=== PATIENT | female | born 1995 | race Caucasian/White ===

== ENCOUNTER → 2020-08-08 | Outpatient (CLI) | payer OTHER ==
--- NOTE | 2020-08-10 06:52 | REP ---
INDICATION: DATING COMPARISON: None. TECHNIQUE: Transabdominal 1st trimester obstetrical ultrasound with color Doppler evaluation. FINDINGS: Single live early intrauterine is appreciated. Gestational sac with yolk sac and pole identified. [place]-rump length of 7.3 cm corresponds to 13 weeks 3 days gestational age with estimated date of delivery 02/10/2021. heart rate equals 152 beats per minute. No gross abnormalities are identified. IMPRESSION: Single live early intrauterine at 13 weeks 3 days gestational age. Complete anatomical assessment should be performed and 19-20 weeks. <Electronically signed by Edenilson Jo > 08/10/20 [id number]
== END ==
LOC: M WHC 14:03
PROVIDERS: ATTEND Advanced Practice Midwife
DX: Z36.89 Encounter for other specified antenatal screening (principal); Z3A.13 13 weeks gestation of pregnancy

== ENCOUNTER → 2020-08-31 | Outpatient (REF) | payer OTHER ==
[2020-08-31 18:01] LABS: HEMOGLOBIN 13.4 g/dl (12.0-15.5); MEAN CORPUSCULAR HEMOGLOBIN 30.9 pg (27.0-33.0); MEAN CORPUSCULAR HGB CONC 32.7 g/dl (32.0-36.5); MEAN CORPUSCULAR VOLUME 94.5 fl (80.0-96.0); PLATELET COUNT, AUTOMATED 339 10^3/uL (150-450); RED BLOOD COUNT 4.34 10^6/uL (4.00-5.40); WHITE BLOOD COUNT 11.3 10^3/uL (4.0-10.0)
[2020-08-31 19:16] LABS: HEPATITIS C VIRUS ABY INDEX 0.1 INDEX (<0.8); HIV 1&2 SCREEN CENTAUR NEGATIVE (NEGATIVE)
== END ==
LOC: M PLALAB 15:59
PROVIDERS: ATTEND Advanced Practice Midwife
DX: Z34.90 Encounter for supervision of normal pregnancy, unspecified, unspecified trimester (principal); Z3A.00 Weeks of gestation of pregnancy not specified

== ENCOUNTER → 2020-09-14 | Outpatient (CLI) | payer OTHER ==
--- NOTE | 2020-09-15 02:58 | REP ---
INDICATION: ANATOMY COMPARISON: None. TECHNIQUE: Transabdominal obstetrical ultrasound with color Doppler evaluation. FINDINGS: Examination demonstrates a single live intrauterine in transverse presentation. motion is identified by technologist. Placenta is noted anterior and grade 0 without evidence for placenta previa or abruption. Amniotic fluid volume is normal. Cervix measures 3.6 cm in length and appears closed.. Gestational age by LMP 18 weeks 5 days with NAIMA 02/10/2021. Gestational age by current measurements 18 weeks 2 days with NAIMA 02/13/2021. FHR equals 143 beats per minute. BPD: 4.1 cm 18 weeks 3 days HC: 15.4 cm 18 weeks 3 days AC: 12.9 cm 18 weeks 3 days FL: 2.6 cm 18 weeks 0 days HL: 2.6 cm 18 weeks 0 days HC/AC: 1.20 Estimated weight 231 grams (22ndpercentile). Anatomical assessment demonstrates normal structures including cranium, choroid plexus, cavum, cerebellum/posterior fossa, facial features, lungs, diaphragm, stomach, cord insertion/three-vessel cord, kidneys/bladder, spine, and extremities. IMPRESSION: Single live intrauterine in transverse lie demonstrating appropriate interval growth. Limited evaluation of the heart/ventricular outflow tracts due to positioning. Remainder of the anatomical assessment is complete and normal. <Electronically signed by Edenilson Jo > 09/15/20 [id number]
== END ==
LOC: M WHC 10:07
PROVIDERS: ATTEND Advanced Practice Midwife
DX: O32.2XX0 Maternal care for transverse and oblique lie, not applicable or unspecified (principal); Z36.89 Encounter for other specified antenatal screening; Z3A.18 18 weeks gestation of pregnancy

== ENCOUNTER → 2020-10-04 | Outpatient (REF) | payer OTHER | LOC: M SFHCWAGY 12:39 | PROVIDERS: ATTEND Advanced Practice Midwife | DX: Z34.82 Encounter for supervision of other normal pregnancy, second trimester (principal) ==

== ENCOUNTER → 2020-10-12 | Outpatient (CLI) | payer OTHER ==
--- NOTE | 2020-10-12 12:01 | REP ---
INDICATION: F/U ANATOMY COMPARISON: 09/14/2020 TECHNIQUE: Transabdominal obstetrical ultrasound with color Doppler evaluation. FINDINGS: Examination demonstrates a single live intrauterine in variable presentation. motion is identified by technologist. Placenta is noted anterior and grade 0 without evidence for placenta previa or abruption. Amniotic fluid volume is normal. Cervix measures 3.4 cm in length and appears closed.. Gestational age by LMP twenty-two weeks 5 days with NAIMA 02/10/2021. Gestational age by current measurements 22 weeks 3 days with NAIMA 02/12/2021. FHR equals 139 beats per minute. Estimated weight 506 grams (32ndpercentile). Anatomical assessment demonstrates normal appearance to the four-chamber heart and cardiac ventricular outflow tracts. IMPRESSION: In conjunction with prior examination anatomical assessment is complete and normal. <Electronically signed by Edenilson Jo > 10/12/20 [id number]
== END ==
LOC: M WHC 09:48
PROVIDERS: ATTEND Advanced Practice Midwife
DX: Z36.9 Encounter for antenatal screening, unspecified (principal); Z3A.22 22 weeks gestation of pregnancy

== ENCOUNTER → 2020-11-18 | Outpatient (REF) | payer OTHER ==
[2020-11-18 16:57] LABS: HEMATOCRIT 33.1 % (36.0-47.0); HEMOGLOBIN 11.1 g/dl (12.0-15.5); MEAN CORPUSCULAR HEMOGLOBIN 32.4 pg (27.0-33.0); MEAN CORPUSCULAR HGB CONC 33.5 g/dl (32.0-36.5); MEAN CORPUSCULAR VOLUME 96.5 fl (80.0-96.0); PLATELET COUNT, AUTOMATED 291 10^3/uL (150-450); RED BLOOD COUNT 3.43 10^6/uL (4.00-5.40); WHITE BLOOD COUNT 15.3 10^3/uL (4.0-10.0)
== END ==
LOC: M PLALAB 14:24
PROVIDERS: ATTEND Advanced Practice Midwife
DX: Z34.82 Encounter for supervision of other normal pregnancy, second trimester (principal)

== ENCOUNTER → 2020-11-28 | Outpatient (CLI) | payer OTHER | LOC: M LAB 08:25 | PROVIDERS: ATTEND Advanced Practice Midwife | DX: O99.810 Abnormal glucose complicating pregnancy (principal); Z3A.00 Weeks of gestation of pregnancy not specified ==

== ENCOUNTER → 2020-12-09 | Outpatient (REF) | payer OTHER | LOC: M PLALAB 15:33 | PROVIDERS: ATTEND Advanced Practice Midwife | DX: Z34.83 Encounter for supervision of other normal pregnancy, third trimester (principal) | CPT/HCPCS: 36415; 86850; 86901; J2790 ==

== ENCOUNTER → 2021-01-12 | Outpatient (REF) | payer OTHER | LOC: M SFHCWAGY 09:47 | PROVIDERS: ATTEND Advanced Practice Midwife | DX: Z36.89 Encounter for other specified antenatal screening (principal); Z3A.35 35 weeks gestation of pregnancy ==

== ENCOUNTER 2021-02-17 12:42 | Inpatient (IN) | payer OTHER ==
[2021-02-17] VITALS (8 sets, daily range): BP systolic 121–138; BP diastolic 62–85
[~2021-02-17] VITALS: Ht 149.9 cm; Wt 79.3 kg
[2021-02-17] MEDS ORDERED: PRENTAB9 PO (13:08)
[2021-02-17] MEDS ORDERED: TUMS500C PO (13:08)
[2021-02-17] MEDS ORDERED: LACTATED RINGER'S 1000 ML IV STA (14:08)
[2021-02-17] MEDS ORDERED: OXYTOCIN DRIP 30 UNITS in IV 1 EA IV PRN (14:10)
[2021-02-17] MEDS ORDERED: METHYLERGONOVINE MALEATE 0.2 MG/ML VIAL (J2210) IM PRN (14:10)
[2021-02-17] MEDS ORDERED: LIDOCAINE 1% MDV 20ML VIAL INFIL PRN (14:10)
--- NOTE | 2021-02-17 14:22 | HPEPDOC ---
Obstetrical History & Physical General Date of Admission February 17, 2021 at 12:42 History of Present Illness Chief Complaint: Induction of labor Age: 26 : 3 Term: 1 Pre-term: 0 Abortions: 1 Livin Care Care: Good Care Dating Final EDC by: 1st trimester (US) EGA at Admission: 41 Antepartum Course Pre- weight (lbs.): 143 Admission Weight (lbs.): 173 Past Medical History Past Obstetrical History : Past Obstetrical History: Primgravida (2010) Type of Delivery: Spontaneous Vaginal Del. Sex of : Male (7#14) Complications: No MANAGER TRANSMISSION History: Theraputic Past Medical History Surgical History: Denies/None Family History Significant Family History: No pertinent family hx Social History Family situation: Spouse/partner home Psychosocial History: No pertinent psych hx * Smoker: current smoker Alcohol: Denies Drugs: denies Abuse Violence Screening Have you been hit/kicked/slapp: No Have you been sexually assault: No Imunizations Tdap status: needs Allergies Coded Allergies: No Known Allergies (Unverified , 02/17/21) Medications Scheduled No.137/Iron/Folic Acd ( Vitamin Tablet) 1 Each Tablet, 1 TAB PO DAILY Scheduled PRN Calcium Carbonate (Tums) 200 Mg Tab.chew, 2 TAB PO QID PRN for HEARTBURN Physical Examination Physical Examination GENERAL: Alert and oriented times three. BREAST: . ABDOMEN: Gravid and non-tender to touch. FETUS: Is vertex (VTX) by sterile vaginal examination (SVE), fetus is vertex (VTX) by Dileep. EFW 7.5-8# HEART RATE: Regular rate and rhythm. LUNGS: Clear to auscultation (CTA). EXTREMITIES: No edema. No clonus. Deep tendon reflexes (DTRs) + 2. Vital Signs/I&O Vital Signs Date Time Temp Pulse Resp B/P (MAP) Pulse Ox O2 Delivery O2 Flow Rate FiO2 02/17/21 13:03 98.5 97 99 137/79 (98) Laboratory Data 24H LABS Laboratory Tests 2 02/17/21 12:51: Serology Scanned Report Hepatitis B Testing Pertinent Laboratoy Data Blood Type: B- RBC Antibody Screen: Negative HIV: Negative Hepatitis B: Negative Hepatitis C: Negative Rapid Plasma Reagin: Nonreactive Rubella: Immune Group B Streptococcus: Negative Glucose Tolerance Test: 163 (86/194/139/101) Anatomy Ultrasound Ultrasound Date: Sep 14, 2020 Placenta Location: Anterior Normal Anatomy: Yes Placenta Previa: No Estimated Weight (grams): 231 (22%) Other Ultrasounds 08/08/2020 dating 13w3d, NAIMA 02/10/21 10/12/2020 f/u anatomy EFW 506gm, 32%, normal f/u anatomy Steroid Therapy Steroid Therapy: No Vaginal Examination Dilation: Fingertip Effacement: 50% Station: -3 Cervical Consistency: Medium Cervical Position: Posterior Presentation: Cephalic presentation Assessment Heart Rate (FHR): 150 Variability: Moderate Accelerations: Positive Decelerations: None Tocometer Contractions: Yes Frequency: irregular Strength: palpated as mild Assessment/Plan Assessment Josie is a 26-year-old (G)3 para (P)1-0-1-1 at 41+0 weeks by 13-week ultrasound. Presents to Labor and Delivery (L&D) for postterm induction of labor. Denies LOF, bleeding or regular UC. Plan Admit and orient per consult Dr Marrufo Silver Steward and consent. Diet: regular. Group B Streptococcus (GBS) negative. Labs and intravenous (IV) per unit protocol. Counseled on misopostol, Pitocin and induction of labor (IOL). Lactated Ringers (LR): Bolus 500 mL, then saline lock. Plans epidural Anticipate normal spontaneous delivery (). C-S as appropriate. Idalia Sharp CNM February 17, 2021 14:22
[2021-02-17] MEDS: miSOPROStol 50MCG 1/2 TABLET PO SCH ×3 (14:23→22:30)
[2021-02-17 14:42] LABS: HEMATOCRIT 34.9 % (36.0-47.0); HEMOGLOBIN 11.7 g/dl (12.0-15.5); MEAN CORPUSCULAR HGB CONC 33.5 g/dl (32.0-36.5); MEAN CORPUSCULAR VOLUME 95.4 fl (80.0-96.0); PLATELET COUNT, AUTOMATED 238 10^3/uL (150-450); RED BLOOD COUNT 3.66 10^6/uL (4.00-5.40)
--- NOTE | 2021-02-17 16:40 | IPNPDOC ---
Text Note Date of Service The patient was seen on 02/17/21. NOTE Progress SROM, clear fluid Comfortable with epidural SVE /-1 FH 145, Cat I UC 2-4 minutes apart Continue pitocin Anticipate NSVB VS,Fishbone, I+O VS, Fishbone, I+O Laboratory Tests 02/17/21 14:10 Vital Signs Date Time Temp Pulse Resp B/P (MAP) Pulse Ox O2 Delivery O2 Flow Rate FiO2 02/17/21 15:32 82 136/72 (93) 02/17/21 13:03 98.5 99 Idalia Sharp CNM February 17, 2021 16:40
[2021-02-18] VITALS (47 sets, daily range): BP systolic 101–161; BP diastolic 52–103
[2021-02-18] MEDS ORDERED: OXYTOCIN DRIP 30 UNITS in IV 1 EA IV SCH ×2 (00:30→22:30)
[2021-02-18] MEDS: LR 1,000 ML IV SCH ×3 (00:50→10:01)
[2021-02-18] MEDS ORDERED: FENTANYL 2MCG/ML ROPIVACAINE 0.2% IN 0.9% NACL 100ML IVBAG As Ordered ONE (02:06)
[2021-02-18] MEDS ORDERED: ONDANSETRON 4MG/2ML VIAL As Ordered ONE (06:29)
[2021-02-18] MEDS ORDERED: NALOXONE INJ 0.4MG/1ML VIAL (J2310 PER 1MG) IV PRN (06:30)
[2021-02-18] MEDS ORDERED: ONDANSETRON 4MG/2ML VIAL IV PRN (06:30)
[2021-02-18] MEDS ORDERED: REFRIGERATOR IV KEYS XX PRN (06:30)
[2021-02-18] MEDS ORDERED: EPIDURAL COMMENT XX SCH (06:30)
[2021-02-18] MEDS ORDERED: LACTATED RINGER'S 1000 ML IV PRN (06:30)
[2021-02-18] MEDS ORDERED: EPIDURAL/PCA KEYS XX PRN (06:30)
[2021-02-18] MEDS ORDERED: ePHEDrine SULFATE 25 MG/5 ML(5MG/ML) SYRINGE IV PRN (06:30)
[2021-02-18] MEDS ORDERED: diphenhydrAMINE 50MG/ML VIAL (J1200) IV PRN (06:30)
[2021-02-18] MEDS: FENTANYL/ROPIVACAINE/NACL BAG 100 ML EPIDURAL SCH ×3 (06:34→18:43)
[2021-02-18] MEDS ORDERED: ACETAMINOPHEN 500 MG TAB PO ONE (14:45)
[2021-02-18] MEDS ORDERED: ACETAMINOPHEN TAB 650MG DOSE (2X325MG) PO PRN (22:30)
[2021-02-18] MEDS ORDERED: METHYLERGONOVINE MALEATE 0.2 MG TAB PO PRN (22:30)
[2021-02-18] MEDS ORDERED: IBUPROFEN 800 MG TAB PO PRN (22:30)
[2021-02-18] MEDS ORDERED: ANUSOL HC CREAM 30GM TOP PRN (22:30)
[2021-02-18] MEDS ORDERED: DOCUSATE SODIUM 100MG CAPSULE PO PRN (22:30)
[2021-02-18] MEDS ORDERED: MEASLES,MUMPS,RUBELLA VACCINE INJ (MMR-II) (90707) SC SCH (22:30)
[2021-02-18] MEDS ORDERED: RHOGAM 300 MCG (1500 IU) INJ (J2790) IM SCH (22:30)
[2021-02-18] MEDS ORDERED: MOM 30ML SUSPENSION UDC PO PRN (22:30)
[2021-02-18] MEDS ORDERED: DIBUCAINE 1% OINTMENT 30GM TOP PRN (22:30)
[2021-02-19 00:59] VITALS: BP 132/73
--- NOTE | 2021-02-19 02:40 | DNPDOC ---
[facility] Delivery Note Delivery Note DATE OF DELIVERY: 02/18/2021 TIME OF : 2205 GENDER: Male. APGARS: 8 and 9 WEIGHT: 3730 grams or 8 pounds 4ounces. LACERATIONS: none ANESTHESIA: epidural ESTIMATED BLOOD LOSS: 200 ml COUNTS: 5 laparotomy sponges accounted for prior to after delivery. DELIVERY NOTE: On on 02/18/2021 at 2205 Ms. Kelvin arciniega 3, now para 2 had a spontaneous vaginal delivery of a liveborn male infant Apgars 8 and 9 weight was 3730 g or 8 lbs. 4 oz. Head was delivered occiput anterior (OA), followed by delivery of the shoulders and corpus. Infant was handed to mom with a good cry. Cord was clamped times two and was cut by support person under my direction. Placenta was then drained and delivered grossly intact. A premixed bag of 500 mL of normal saline with 30 units of Pitocin was then bolused along with uterine massage until the uterus was firm. On inspection, cervix, vagina, perineum was grossly intact and hemostatic. Mom and baby in recovery on stable condition. DOMINIQUE GALEANO MD. February 19, 2021 02:40
[2021-02-19] MEDS: ACETAMINOPHEN 500 MG TAB PO PRN ×2 (03:42→19:41)
[2021-02-19 05:53] VITALS: BP 114/57
--- NOTE | 2021-02-19 08:29 | IPNPDOC ---
Progress Note Date of Service: February 19, 2021 Day#: 1 Progress Note SUBJECT: Doing well without complaints. Ambulating, voiding and pain is well-co ntrolled. Reports minimal lochia. OBJECTIVE: VITAL SIGNS: Within normal limits, afebrile. Alert and oriented times three. Abdomen: Fundus firm at U-2. Soft, NTTP. Ext: neg calf tenderness. ASSESSMENT: day #1 status post . Recovering in stable condition. PLAN: 1. Continue routine care 2. Discharge plans for tomorrow VS, I&O, 24H, Fishbone Vital Signs/I&O Vital Signs Date Time Temp Pulse Resp B/P (MAP) Pulse Ox O2 Delivery O2 Flow Rate FiO2 02/19/21 05:53 97.3 80 16 114/57 (76) 98 02/19/21 00:59 Room Air I&O- Last 24 Hours up to 6 AM 02/19/21 06:00 Intake Total 9121 ml Output Total 2825 ml Balance 6296 ml DOMINIQUE GALEANO MD. February 19, 2021 08:29
[2021-02-19] MEDS: IBUPROFEN 600MG TAB PO PRN ×2 (08:50→16:43)
[2021-02-19] MEDS: PRENATAL VITAMINS CHEWABLE TABLET PO SCH (08:50)
[2021-02-19 17:49] VITALS: BP 118/62
[2021-02-20] MEDS: IBUPROFEN 600MG TAB PO PRN (00:33)
[2021-02-20 06:00] VITALS: BP 126/69
[2021-02-20] MEDS: PRENATAL VITAMINS CHEWABLE TABLET PO SCH (08:21)
[2021-02-20] MEDS ORDERED: ACET-683 PO (08:42)
[2021-02-20] MEDS ORDERED: IBUP80TA PO (08:42)
== END 2021-02-20 13:15 | disposition home or self-care (01) | DRG 560 ==
LOC: M LDI 12:42 → M OBS 02-19 00:44
PROVIDERS: ADMIT Advanced Practice Midwife; ATTEND Advanced Practice Midwife
PROC: 3E033VJ Introduction of Other Hormone into Peripheral Vein, Percutaneous Approach (ICD-10-PCS; 2021-02-17)
PROC: 3E0DXGC Introduction of Other Therapeutic Substance into Mouth and Pharynx, External Approach (ICD-10-PCS; 2021-02-17)
PROC: 10E0XZZ Delivery of Products of Conception, External Approach (ICD-10-PCS; principal; 2021-02-18)
DX: O48.0 Post-term pregnancy (principal); Z37.0 Single live birth; Z3A.41 41 weeks gestation of pregnancy

== ENCOUNTER 2021-07-20 20:40 | Day surgery (SDC) | payer OTHER ==
[~2021-07-20] VITALS: Ht 149.9 cm; Wt 75.9 kg
[~2021-07-20 20:40] MED LIST: ACET-683 PO; IBUP80TA PO; PRENTAB9 PO; TUMS500C PO
[2021-07-20] MEDS ORDERED: BUPIVACAINE/EPIN 0.25% 30 ML VIAL As Ordered ONE (21:38)
[2021-07-20] MEDS ORDERED: LIDOCAINE 2% 100MG/5ML SDV (FOR ANES.) As Ordered ONE (22:22)
[2021-07-20] MEDS ORDERED: propofoL 200 MG/20 ML VIAL As Ordered ONE (22:22)
[2021-07-20] MEDS ORDERED: fentaNYL 100 MCG/2 ML INJECTION (J3010) As Ordered ONE ×2 (22:22→22:30)
[2021-07-20] MEDS ORDERED: MIDAZOLAM INJ 2MG/2ML VIAL (J2250 PER 1MG) As Ordered ONE (22:22)
[2021-07-20] MEDS ORDERED: KETOROLAC 60MG 2ML VIAL As Ordered ONE (22:23)
[2021-07-20] MEDS ORDERED: ONDANSETRON 4MG/2ML VIAL As Ordered ONE (22:23)
[2021-07-20] MEDS ORDERED: dexameTHASONE 4 MG/ML 1ML VIAL (J1100 PER 1MG) As Ordered ONE (22:23)
[2021-07-20] MEDS ORDERED: ROCURONIUM BROMIDE 50 MG/5 ML VIAL As Ordered ONE (22:23)
[2021-07-20] MEDS ORDERED: SUGAMMADEX SODIUM 500 MG/5 ML VIAL (BRIDION) As Ordered ONE (22:23)
[2021-07-20] MEDS ORDERED: ACETAMINOPHEN 1000MG 100ML IV BTL (OFIRMEV) (J0131 PER 10MG) As Ordered ONE (22:23)
[2021-07-20] MEDS ORDERED: METOCLOPRAMIDE INJ 10MG/2ML VIAL (J2765 PER 1) As Ordered ONE (22:23)
[2021-07-20] MEDS ORDERED: ONDANSETRON 4MG/2ML VIAL IV PRN ×2 (23:10→23:30)
[2021-07-20] MEDS ORDERED: LR 1,000 ML IV SCH ×2 (23:10→23:30)
[2021-07-20] MEDS ORDERED: MORPHINE 2 MG/ML 1ML VIAL (J2270) IV PRN (23:10)
[2021-07-20] MEDS ORDERED: fentaNYL 100 MCG/2 ML INJECTION (J3010) IV PRN (23:30)
[2021-07-20] MEDS ORDERED: oxyCODONE 5MG TAB PO PRN (23:30)
[2021-07-21] VITALS (7 sets, daily range): BP systolic 115–131; BP diastolic 63–76
[2021-07-21] MEDS: PIPERACILLIN/TAZOBACTAM SOD 3.375 GM in D5W MINI-BAG PLUS 50 ML IV SCH ×2 (00:23→06:11)
[2021-07-21] MEDS ORDERED: MULTTAB20 PO (00:56)
[2021-07-21] MEDS ORDERED: HOME MED LIST COMPLETE! XX SCH (01:00)
[2021-07-21] MEDS: PERCOCET 5MG/325MG TAB PO PRN ×2 (02:06→08:10)
[2021-07-21] MEDS: KETOROLAC 30 MG/ML 1ML VIAL IV SCH ×2 (04:05→08:09)
== END 2021-07-21 11:35 | disposition home or self-care (01) ==
LOC: M ED 20:40 → M SDC 20:41 → M MS5PR 23:58 → M SDC 07-21 11:35
PROVIDERS: ATTEND Surgery
DX: K35.890 Other acute appendicitis without perforation or gangrene (principal); F17.218 Nicotine dependence, cigarettes, with other nicotine-induced disorders
CPT/HCPCS: 44970; 88304; 96365; 96366; 96375; 96376; 99284; J0131; J1100; J1885; J2250; J2405; J2543; J2765; J3010

== ENCOUNTER → 2023-02-21 | Outpatient (REF) | payer OTHER ==
[~2023-02-21] MED LIST changes: +MULTTAB20 PO
[2023-02-21 18:43] LABS: HEPATITIS B SURFACE ANTIGEN NEGATIVE (NEGATIVE)
[2023-02-21 18:56] LABS: HIV 1&2 SCREEN NEGATIVE (NEGATIVE)
[2023-02-21 19:04] LABS: HEPATITIS C VIRUS ABY INDEX 0.1 INDEX (<0.8)
[2023-02-21 19:05] LABS: HEPATITIS B CORE ANTIBODY IGM NEGATIVE (NEGATIVE)
[2023-02-21 19:55] LABS: GC DNA AMPLIFICATION NEGATIVE (NEGATIVE)
[2023-03-08 13:28] LABS: GC DNA AMPLIFICATION NEGATIVE (NEGATIVE)
== END ==
LOC: M SFHCWAGY 17:30
PROVIDERS: ATTEND Nurse Practitioner Family
DX: Z11.3 Encounter for screening for infections with a predominantly sexual mode of transmission (principal)

== ENCOUNTER → 2023-05-22 | Outpatient (CLI) | payer OTHER ==
[2023-05-22 14:15] LABS: HIV 1&2 SCREEN NEGATIVE (NEGATIVE)
[2023-05-22 14:23] LABS: HEPATITIS B CORE ANTIBODY IGM NEGATIVE (NEGATIVE); HEPATITIS C VIRUS ABY INDEX 0.24 INDEX (<0.8)
[2023-05-22 15:40] LABS: GC DNA AMPLIFICATION NEGATIVE (NEGATIVE)
== END ==
LOC: M PLALAB 09:17
PROVIDERS: ATTEND Nurse Practitioner Family
DX: Z11.3 Encounter for screening for infections with a predominantly sexual mode of transmission (principal)

== ENCOUNTER → 2024-10-22 | Outpatient (CLI) | payer OTHER ==
[~2024-10-22] MED LIST changes: +LIDOCAINE 1% MDV 20ML VIAL As Ordered ONE; +XULA1DIS TOP
[2024-10-22 13:35] VITALS: TEMP 96.3
[2024-10-22 14:15] VITALS: BP 160/96; O2SAT 100
== END ==
LOC: M IRPRO 13:03
PROVIDERS: ATTEND Specialist
DX: R59.0 Localized enlarged lymph nodes (principal)

== ENCOUNTER → 2025-06-22 | Outpatient (REF) | payer OTHER ==
[~2025-06-22] MED LIST changes: -LIDOCAINE 1% MDV 20ML VIAL As Ordered ONE
[2025-06-22 15:11] LABS: Trichomonas vaginalis (AMP) NOT DETECTED (NEGATIVE)
[2025-06-22 15:36] LABS: GC DNA AMPLIFICATION NEGATIVE (NEGATIVE)
== END ==
LOC: M SFHCWAGY 13:11
PROVIDERS: ATTEND Nurse Practitioner Family
DX: Z11.3 Encounter for screening for infections with a predominantly sexual mode of transmission (principal); L29.2 Pruritus vulvae